=== PATIENT | male | born 1995 | race Two or more races ===

== ENCOUNTER 2023-08-30 22:41 | Emergency (ER) | payer OTHER ==
[2023-08-30 22:56] VITALS: BP 112/70; PULSE 68; RESP 18; TEMP 98; BMI 27.7
[2023-08-30 23:54] LABS: BASO % 0.6 % (0-2.0); EOS % 6.2 % (0-4.5); HEMATOCRIT 43.5 % (35.4-49); HEMOGLOBIN 14.8 GM/dL (11.7-16.9); LYMPH % 41.1 % (8-40); MCH 27.6 pg (25.7-33.7); MEAN CELL VOLUME 81.3 fl (80-96); MEAN PLT VOLUME 9.6 fl (7.5-11.1); MONO % 6.3 % (3.8-10.2); NEUT % 45.8 % (42.8-82.8); PLATELET COUNT 168 10^3/uL (134-434); RBC 5.35 M/mm3 (4.00-5.60); RDW 13.2 % (11.9-15.9); WHITE BLOOD COUNT 6.6 K/mm3 (4.0-10.0)
[2023-08-31 00:11] LABS: POTASSIUM 3.9 mmol/L (3.5-5.1)
[2023-08-31 00:13] LABS: ALBUMIN 4.2 g/dl (3.4-5.0); CALCIUM 9.1 mg/dL (8.5-10.1)
[2023-08-31 00:14] LABS: BLOOD UREA NITROGEN 15.4 mg/dL (7-18)
[2023-08-31 00:16] LABS: CREATININE 0.9 mg/dL (0.55-1.3)
[2023-08-31 00:18] LABS: BILIRUBIN,TOTAL 0.4 mg/dL (0.2-1); TOT PROT 7.5 g/dl (6.4-8.2)
[2023-08-31] MEDS ORDERED: ACETAMINOPHEN INJECTION 100 ML IVPB ONE (00:24)
[2023-08-31] MEDS: SODIUM CHLORIDE 0.9% 500 ML INFUS.BAG IV ONE (00:42)
[2023-08-31] MEDS: ACETAMINOPHEN 1000 MG/100 ML BAG IVPB ONE (00:42)
== END 2023-08-31 02:10 | disposition home or self-care (01) ==
LOC: JER 22:41
PROC: 3E033NZ Introduction of Analgesics, Hypnotics, Sedatives into Peripheral Vein, Percutaneous Approach (ICD-10-PCS; principal; 2023-08-31)
DX: R10.11 Right upper quadrant pain (principal); R10.32 Left lower quadrant pain; R11.2 Nausea with vomiting, unspecified; K59.00 Constipation, unspecified
CPT/HCPCS: 36415; 74177-TC; 76705-TC; 80053; 83605; 83690; 85025; 86850; 86900; 86901; 96374; 99285-25; J0131; Q9967